=== PATIENT | female | born 1980 ===

== ENCOUNTER 2018-01-13 08:37 | Emergency (ER) | payer SELFPAY ==
[2018-01-13] MEDS ORDERED: Ketorolac Tromethamine 60 MG/2 ML VIAL ONE (09:09)
--- NOTE | 2018-01-13 09:32 | RAD ---
RIGHT WRIST 3 VIEWS: HISTORY: Wrist pain. No injury. FINDINGS: Small linear bony density is seen along the radial styloid. This could be the sequelae of an old inj ury. It does not appear to be acute. There is some minimal cystic change of the lunate. There is n o arthritic change demonstrated. No erosive bony change noted. IMPRESSION: No definite acute findings. Small linear bony density along the margin of the radial styloid may be the sequelae of an old injury. I would think it unlikely to represent an acute avulsion. POS: [facility]
== END 2018-01-13 09:32 | disposition home or self-care (01) ==
LOC: ERS 08:37
DX: M65.9 Synovitis and tenosynovitis, unspecified (principal); M25.531 Pain in right wrist; F41.9 Anxiety disorder, unspecified; F32.9 Major depressive disorder, single episode, unspecified; Z87.891 Personal history of nicotine dependence
CPT/HCPCS: 96372; J1885